=== PATIENT | male | born 1955 | race Caucasian/White ===

== ENCOUNTER 2016-06-30 06:35 | Inpatient (IN) | payer BC ==
[2016-06-30] MEDS ORDERED: NS 0.9% 1000 ML* 1,000 ML IV ONE (07:29)
[2016-06-30] MEDS ORDERED: Aspirin Low Dose CHEW TAB* 81 MG PO ONE (07:29)
[2016-06-30 08:00] LABS: Hematocrit 53 % (42-52); Hemoglobin 17.7 g/dl (14.0-18.0); Mean Corpuscular HGB Conc 33 g/dl (31-36); Mean Corpuscular Hemoglobin 31 pg (27-31); Mean Corpuscular Volume 92 fL (80-94); Mean Platelet Volume 9 um3 (7.4-10.4); Red Blood Count 5.76 10^6/ul (4.0-5.4); Red Cell Distribution Width 14 % (10.5-15); White Blood Count 7.1 10^3/ul (3.5-10.8)
[2016-06-30 08:12] LABS: ALT 28 U/L (7-52); Albumin 3.7 g/dL (3.2-5.2); Alkaline Phosphatase 61 U/L (34-104); BUN/Creatinine Ratio 21.2 (8-20); Blood Urea Nitrogen 18 mg/dL (6-24); CO2 Carbon Dioxide 26 mmol/L (22-32); Calcium 9.2 mg/dL (8.6-10.3); Chloride 101 mmol/L (101-111); Creatine Kinase 84 U/L (10-223); EGFR African American 119.1 (>60); EGFR Non-African American 92.6 (>60); Glucose 208 mg/dL (70-100); Sodium 131 mmol/L (133-145); Total Protein 6.7 g/dL (6.4-8.9)
--- NOTE | 2016-06-30 08:30 | RAD ---
INDICATION: Chest pain. Pneumonia COMPARISON: February 03, 2015 TECHNIQUE: An AP portable view obtained at 0755 hours is submitted. FINDINGS: Bones/Soft Tissues: There are no acute bony findings. Cardiomediastinal: The cardiomediastinal silhouette is normal. Lungs: There are no infiltrates. Pleura: There are no pleural effusions. Other: There is chronic elevation of the right hemidiaphragm IMPRESSION: NO ACTIVE DISEASE. CHRONIC ELEVATION RIGHT HEMIDIAPHRAGM
--- NOTE | 2016-06-30 09:09 | ADMNOTE ---
Subjective Date of Service: 06/30/16 Interval History: ADMISSION HISTORY AND PHYSICAL EXAM: Allergies Allergy/AdvReac Type Severity Reaction Status Date / Time No Known Allergies Allergy Verified 02/01/15 09:35 Home Medications Medication Instructions Recorded Confirmed Type Atorvastatin* [Lipitor*] 80 mg PO DAILY 02/02/15 02/02/15 History Lisinopril TAB* [Prinivil TAB*] 10 mg PO DAILY 02/02/15 02/02/15 History Metoprolol Succinate XL TAB* 100 mg PO DAILY 02/02/15 02/02/15 History [Toprol XL TAB*] Nitroglycerin [Nitrostat] 0.3 mg SL 02/02/15 02/02/15 History Ticagrelor* [Brilinta*] 90 mg PO BID 02/02/15 02/02/15 History glipiZIDE TAB* [Glucotrol TAB*] 5 mg PO DAILY 02/02/15 02/02/15 History metFORMIN* [Glucophage*] 500 mg PO BID 02/02/15 02/02/15 History HPI: Patient was in his usual sstate of health. When he got up this AM and walked his dogs, he got pain R chest to R back. It was very similar to the pain he had with his ND 2014. He took two (fresh) NTG SL without relief. The pain is still present but much less. No SOB. He took his ASA, metformin, and metoprolol this AM. Family History: Findings - DM, CVA, HTN, heart disease Social History: Findings - . Works for [employer]. Quit smoking 1 year ago. No alcohol abuse. Son Musa is his SDM. Past Medical History: Findings - Cardiac stents 08/31, 01/31. Hernia repair, eye surgery. DM. Review of Systems - Measurements Intake and Output: Intake and Output Last 24 Hours 06/28/16 06/29/16 06/30/16 07/01/16 06:59 06:59 06:59 06:59 Weight 206 lb - Review of Systems Constitutional Symptoms: Positive: Weight Gain Dermatology: Positive: Normal HEENT: Positive: Normal Eyes: Positive: Normal Thyroid: Positive: Normal Pulmonary: Positive: Normal Cardiology: Positive: Chest Pain Gastroenterology: Positive: Other - c/o burping Genital - Urinary: Positive: Normal Musculoskeletal: Negative: Joint Pain, Joint Stiffness, Arthritis, Osteoporosis, Low Back Pain , Sciatica, Joint Deformities, Kyphoscoliosis, Other Endocrinology: Positive: Diabetes Mellitus Hematologic/Lymphatic: Negative: Anemia, Easy Brusing, Hx Leukemia, Hx Lymphoma, Use of Anticoagulant, Use of Antiplatelet Drugs, Other Neurology: Positive: Normal Psychiatry: Positive: Normal Allergic/Immunologic: Negative: Hx Anaphylaxis, Hx Angioedema, Hx Environmental, Hx Seasonal, Athsma, Hx HIV, Immunocompromise, Swollen Glands LymphNodes, Other Objective Vital Signs 06/30/16 06/30/16 06/30/16 06:43 06:55 06:57 Temperature 97.9 F Pulse Rate 86 83 Respiratory 18 12 Rate Blood Pressure 132/89 133/82 (mmHg) O2 Sat by Pulse 95 96 Oximetry 06/30/16 06/30/16 06/30/16 07:00 07:30 08:00 Temperature Pulse Rate 85 86 83 Respiratory 12 14 14 Rate Blood Pressure 135/78 120/79 113/79 (mmHg) O2 Sat by Pulse 95 94 94 Oximetry 06/30/16 08:30 Temperature Pulse Rate 81 Respiratory Rate Blood Pressure 108/72 (mmHg) O2 Sat by Pulse 94 Oximetry Oxygen Devices in Use Now: Nasal Cannula Appearance: Alert, head partly up in bed. In good spirits. Looks comfortable. Eyes: No Scleral Icterus Ears/Nose/Mouth/Throat: Clear Oropharnyx, Mucous Membranes Moist Neck: NL Appearance and Movements; NL JVP, No Thyroid Enlargement, Masses Respiratory: Symmetrical Chest Expansion and Respiratory Effort, Clear to Auscultation, Clear to Percussion Cardiovascular: NL Sounds; No Murmurs; No JVD, RRR, No Edema, - Abdominal: NL Sounds; No Tenderness; No Distention, No Hepatosplenomegaly, - Extremities: No Edema, No Clubbing, Cyanosis, - Skin: No Rash or Ulcers, No Nodules or Sclerosis, - Neurological: Alert and Oriented x 3, NL Sensation Result Diagrams: 06/30/16 13:00 06/30/16 09:00 Assess/Plan/Problems-Billing Assessment: - Patient Problems (1) Chest pain Current Visit: No Status: Acute Priority: High Onset Date: 08/25/14 Code (s): R07.9 - CHEST PAIN, UNSPECIFIED SNOMED Code(s): 82144385 Comment: Repeat ECG unchanged, second tropinin 0.14. I called Dr. Urbina who brought the paient to the laborer cheesemaking. Heparin drip started. Clopidogrel started post-cath. Stress test 07/01 to try to identify the culprit lesion. (2) Diabetes mellitus Current Visit: No Status: Chronic Code(s): E11.9 - TYPE 2 DIABETES MELLITUS WITHOUT COMPLICATIONS SNOMED Code(s): 41338244 Comment: Addon HgbA1c ordered. Hold metformin while in hospital. (3) LIBBY (obstructive sleep apnea) Current Visit: No Status: Chronic Code(s): G47.33 - OBSTRUCTIVE SLEEP APNEA (ADULT) (PEDIATRIC) SNOMED Code(s): 20461985 Comment: Pt tried CPAP at home, could not tolerate it.
[2016-06-30 09:21] LABS: Magnesium 1.6 mg/dL (1.9-2.7)
[2016-06-30 09:51] LABS: Troponin I 0.14 ng/mL (<0.04)
[2016-06-30] MEDS ORDERED: Heparin VIAL(*) 5000 UNITS/ML VIAL (FIVE THOUSAND) IV SCH (10:00)
[2016-06-30] MEDS ORDERED: Dextrose 50% Syringe 50 ML* 25 GM/50 ML SYRINGE IV PUSH PRN (10:02)
[2016-06-30] MEDS ORDERED: Nitroglycerin TAB 0.4 MG* 0.4 MG TAB SL PRN ×2 (10:05→12:48)
[2016-06-30] MEDS ORDERED: Morphine INJ* 2 MG/ML 1 ML CARPUJECT IV PRN (10:06)
--- NOTE | 2016-06-30 10:07 | ED ---
Roque Lemus Benjamin, scribed for Velasquez Obrien MD on 06/30/16 at 0753 . HPI Chest Pain - HPI Summary HPI Summary: 60yo male c/o dull CP since 0530 today shortly after a brief walk outside to get coffee. Pt cannot exactly recall the location of his CP, but admits pain radiating to right shoulder blade. Pt rated the pain initially 8-9/10 and discomfort is still present but in scale of 6/10 pain. Pt felt tired a few days prior, and broke out in sweat at the onset of CP. Pt took 2 nitrostat WEB WEAVER,. Pt has hx of prior HI, but states todays pain is not as worse as his previous HI. Hx also includes cardiac stents and DM. Pt denies cough, SOB, CP, leg edema, N/V , or abdominal pain. Dr. Woodward is his handle rounder operator. - History of Current Complaint Chief Complaint: EDChestPainROMI Hx Obtained From: Patient, Family/Heat Reader Onset/Duration: Started Hours Ago - at 0530, Still Present Timing: Constant Initial Severity: Severe Current Severity: Moderate Pain Intensity: 6 Pain Scale Used: 0-10 Numeric Chest Pain Location: Diffuse Chest Pain Radiates: Yes Chest Pain Radiates To:: Shoulder - right shoulderblade Character: Dull/Aching - dull Aggravating Factor(s): Nothing Alleviating Factor(s): Nothing Associated Signs and Symptoms: Positive: Fever, Diaphoresis. Negative: Shortness of Breath, Nausea, Cough, Abdominal Pain, Vomiting, Edema - Additional Pertinent History Primary Care Physician: [id number] - Allergy/Home Medications Allergies/Adverse Reactions: Allergies Allergy/AdvReac Type Severity Reaction Status Date / Time No Known Allergies Allergy Verified 02/01/15 09:35 PMH/Surg Hx/FS Hx/Imm Hx Endocrine/Hematology History: Reports: Hx Diabetes Cardiovascular History: Reports: Hx Hypertension Denies: Hx Congestive Heart Failure History: Denies: Hx Renal Disease Sensory History: Reports: Hx Contacts or Glasses, Hx Legally Blind - left eye blind Opthamlomology History: Reports: Hx Contacts or Glasses, Hx Legally Blind - left eye blind - Surgical History Surgery Procedure, Year, and Place: Left inguinal hernia repair. 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 Negative: Palpitations Respiratory: Negative Negative: Shortness Of Breath, Cough Gastrointestinal: Negative Negative: Abdominal Pain, Vomiting, Nausea Genitourinary: Negative Musculoskeletal: Negative Skin: Negative Neurological: Negative Psychological: Normal All Other Systems Reviewed And Are Negative: Yes Physical Exam - Summary Physical Exam Summary: The patient is well-nourished in no acute distress and in no acute pain. The skin is warm and dry and skin color reflects adequate perfusion. HEENT: The head is normocephalic and atraumatic. The pupils are equal and reactive. The conjunctivae are clear and without drainage. Nares are patent and without drainage. Mouth reveals moist mucous membranes and the throat is without erythema and exudate. The external ears are intact. The ear canals are patent and without drainage. The tympanic membranes are intact. Neck is supple with full range of motion and non-tender. There are no carotid bruits. There is no neck vein distension. Respiratory: Chest is non-tender. Lungs are clear to auscultation and breath sounds are symmetrical and equal. Cardiovascular: Hear is regular rate and rhythm. There is no murmur or rub auscultated. There is no peripheral edema and pulses are symmetrical and equal. Abdomen: The abdomen is soft and non-tender. There are normal bowel sounds heard in all four quadrants and there is no organomegaly palpated. Musculoskeletal: There is no back pain noted. Extremities are non-tender with full range of motion. There is good capillary refill. There is no peripheral edema or calf tenderness elicited. No reproducible pain in chest or back. Good femoral pulses. Neurological: Patient is alert and oriented to person, place and time. The patient has symmetrical motor strength in all four extremities. Cranial nerves are grossly intact. Deep tendon reflexes are symmetrical and equal in all four extremities. Psychiatric: The patient has an appropriate affect and does not exhibit any anxiety or depression. Triage Information Reviewed: Yes Vital Signs On Initial Exam: Initial Vitals Temp Pulse Resp BP Pulse Ox 97.9 F 86 18 132/89 95 06/30/16 06:43 06/30/16 06:43 06/30/16 06:43 06/30/16 06:43 06/30/16 06:43 Vital Signs Reviewed: Yes Diagnostics - Vital Signs Vital Signs Temp Pulse Resp BP Pulse Ox 06/30/16 06:57 83 12 96 06/30/16 06:55 133/82 06/30/16 06:43 97.9 F 86 18 132/89 95 - Laboratory Lab Results: Lab Results 06/30/16 06/30/16 06/30/16 Range/Units 06:51 06:51 06:51 WBC 7.1 (3.5-10.8) 10^3/ul RBC 5.76 H (4.0-5.4) 10^6/ul Hgb 17.7 (14.0-18.0) g/dl Hct 53 H (42-52) % MCV 92 (80-94) fL MCH 31 (27-31) pg MCHC 33 (31-36) g/dl RDW 14 (10.5-15) % Plt Count 188 (150-450) 10^3/ul MPV 9 (7.4-10.4) um3 Neut % (Auto) 65.0 (38-83) % Lymph % (Auto) 20.7 L (25-47) % Allen % (Auto) 8.6 (1-9) % Eos % (Auto) 4.2 (0-6) % Baso % (Auto) 1.5 (0-2) % Absolute Neuts (auto) 4.6 (1.5-7.7) 10^3/ul Absolute Lymphs (auto) 1.5 (1.0-4.8) 10^3/ul Absolute Monos (auto) 0.6 (0-0.8) 10^3/ul Absolute Eos (auto) 0.3 (0-0.6) 10^3/ul Absolute Basos (auto) 0.1 (0-0.2) 10^3/ul Absolute Nucleated RBC 0.01 10^3/ul Nucleated RBC % 0.1 INR (Anticoag Therapy) 0.94 (0.89-1.11) Sodium 131 L (133-145) mmol/L Potassium TNP Chloride 101 (101-111) mmol/L Carbon Dioxide 26 (22-32) mmol/L Anion Gap TNP BUN 18 (6-24) mg/dL Creatinine 0.85 (0.67-1.17) mg/dL Est GFR ( Amer) 119.1 (>60) Est GFR (Non-Af Amer) 92.6 (>60) BUN/Creatinine Ratio 21.2 H (8-20) Glucose 208 H (70-100) mg/dL Lactic Acid (0.5-2.0) mmol/L Calcium 9.2 (8.6-10.3) mg/dL Magnesium TNP Total Bilirubin 0.80 (0.2-1.0) mg/dL AST TNP ALT 28 (7-52) U/L Alkaline Phosphatase 61 (34-104) U/L Total Creatine Kinase 84 (10-223) U/L Troponin I 0.00 (<0.04) ng/mL B-Natriuretic Peptide ( - 100) pg/mL Total Protein 6.7 (6.4-8.9) g/dL Albumin 3.7 (3.2-5.2) g/dL Globulin 3.0 (2-4) g/dL Albumin/Globulin Ratio 1.2 (1-3) 06/30/16 06/30/16 06/30/16 Range/Units 06:51 06:51 09:00 WBC (3.5-10.8) 10^3/ul RBC (4.0-5.4) 10^6/ul Hgb (14.0-18.0) g/dl Hct (42-52) % MCV (80-94) fL MCH (27-31) pg MCHC (31-36) g/dl RDW (10.5-15) % Plt Count (150-450) 10^3/ul MPV (7.4-10.4) um3 Neut % (Auto) (38-83) % Lymph % (Auto) (25-47) % Allen % (Auto) (1-9) % Eos % (Auto) (0-6) % Baso % (Auto) (0-2) % Absolute Neuts (auto) (1.5-7.7) 10^3/ul Absolute Lymphs (auto) (1.0-4.8) 10^3/ul Absolute Monos (auto) (0-0.8) 10^3/ul Absolute Eos (auto) (0-0.6) 10^3/ul Absolute Basos (auto) (0-0.2) 10^3/ul Absolute Nucleated RBC 10^3/ul Nucleated RBC % INR (Anticoag Therapy) (0.89-1.11) Sodium (133-145) mmol/L Potassium 4.4 Chloride (101-111) mmol/L Carbon Dioxide (22-32) mmol/L Anion Gap BUN (6-24) mg/dL Creatinine (0.67-1.17) mg/dL Est GFR ( Amer) (>60) Est GFR (Non-Af Amer) (>60) BUN/Creatinine Ratio (8-20) Glucose 165 H (70-100) mg/dL Lactic Acid 1.2 (0.5-2.0) mmol/L Calcium (8.6-10.3) mg/dL Magnesium 1.6 L Total Bilirubin (0.2-1.0) mg/dL AST 18 ALT (7-52) U/L Alkaline Phosphatase (34-104) U/L Total Creatine Kinase (10-223) U/L Troponin I 0.14 H* (<0.04) ng/mL B-Natriuretic Peptide 7 ( - 100) pg/mL Total Protein (6.4-8.9) g/dL Albumin (3.2-5.2) g/dL Globulin (2-4) g/dL Albumin/Globulin Ratio (1-3) Result Diagrams: 06/30/16 06:51 06/30/16 09:00 Lab Statement: Any lab studies that have been ordered have been reviewed, and results considered in the medical decision making process. - Radiology CXR Xray Interpretation: No Acute Changes - IMPRESSION: NO ACTIVE DISEASE. CHRONIC ELEVATION RIGHT HEMIDIAPHRAGM Radiology Interpretation Completed By: Radiologist - EKG 0645 Cardiac Rate: NL EKG Rhythm: Sinus Rhythm EKG Interpretation: RBBB. Old Anterior Infarct. no STEMI Re-Evaluation - Re-Evaluation First Eval Re-Evaluation Time: 10:04 Change: Improved - Pt is pain-free. Pt was told about his troponin level. Pt is awaiting for admission. Chest Pain Course/Dx - Course Assessment/Plan: risk stratification using heart score showed to be a moderate risk at 6 points. - Chest Pain Differential Diagnosis/HQI/PQRI: Acute HI, ACS, Angina, CHF, GI Disease - Diagnoses Provider Diagnoses: NSTEMI (non-ST elevated myocardial infarction) - Provider Notifications Discussed Care Of Patient With: Dr. Silverman (Hospitalist) @[phone]. Discussed about today's CP and the pt's prior hx of CAD. Dr. Silverman will come to evaluate the pt. Dr. Silverman (Hospitalist) @1000. Admiting pt to ICU. Discharge - Discharge Plan Condition: Guarded Disposition: ADMITTED TO [facility] Referrals: Christina RAMACHANDRAN,Eren Chatman [Primary Care Provider] - The documentation as recorded by the Roque alfonso Benjamin accurately reflects the service I personally performed and the decisions made by , Velasquez Obrien MD.
[2016-06-30] MEDS ORDERED: NS 0.9% 1000 ML* 1,000 ML IV SCH ×2 (10:15→13:00)
[2016-06-30] MEDS ORDERED: Heparin DRIP 25,000 UNITS(*) 25,000 UNITS/500 ML BAG ONE (10:47)
[2016-06-30] MEDS ORDERED: Heparin VIAL(*) 5000 UNITS/ML VIAL (FIVE THOUSAND) ONE (10:58)
[2016-06-30] MEDS ORDERED: Midazolam* 1 MG/ML 5 ML VIAL (5 MG) ONE (11:17)
[2016-06-30] MEDS ORDERED: fentaNYL* 50 MCG/ML 2 ML VIAL (100 MCG VIAL) ONE (11:17)
[2016-06-30] MEDS ORDERED: nitroGLYCERIN DRIP* 0 ML ONE (11:18)
[2016-06-30] MEDS ORDERED: Heparin 2 UNITS/ML IVPREMIX* 3,000 ML IV ONE (11:18)
[2016-06-30] MEDS ORDERED: Iohexol 350 (CONTRAST) 200 ML MDV IV ONE (11:18)
[2016-06-30] MEDS ORDERED: VERAPAMIL 2.5 MG/ML 4 ML VIAL ONE (11:18)
[2016-06-30] MEDS ORDERED: Heparin(*) 1000 UNIT/ML 10 ML VIAL CATH LAB IV ONE (11:18)
[2016-06-30] MEDS ORDERED: Lidocaine 1% INJ* 10 MG/ML 30 ML SDV ONE (11:18)
[2016-06-30] MEDS: Heparin DRIP 25,000 UNITS(*) 25,000 UNITS/500 ML BAG IVPB SCH (11:22)
--- NOTE | 2016-06-30 12:22 | CONS ---
CARDIOLOGY CONSULTATION REPORT: DATE OF CONSULT: 06/30/16 HISTORY OF PRESENT ILLNESS: I was asked by Dr. Silverman from the hospitalist service to see this 60-year-old male patient who presented to the emergency room with symptoms of chest pain this morning. In reviewing his history, the patient was having known history of extensive coronary artery disease. In 2014 in August, he underwent angioplasty and stenting of the left anterior descending artery. He also had inferior wall myocardial infarction in January of 2015 and he underwent angioplasty and stenting of the right coronary artery and multiple stents. He was found to have significant multivessel disease involving mid to distal left anterior descending artery, the mid portion of the circ, in addition to total occluded right coronary artery as a primary lesion for his ST- elevation myocardial infarction. He underwent subsequent revascularization of the right coronary artery. He has done well. At that time, he used to smoke, he quit. He has been maintained on baby aspirin once a day, Lipitor 80 mg daily , glipizide for diabetes 5 mg twice a day, lisinopril 10 mg daily, metformin 1000 mg twice a day, metoprolol 25 mg half once a day. He does have history of dyslipidemia; diabetes mellitus, type 2. He has done well without any nausea, no fever, no chills, no skin rash, no tremors, no hematochezia, no palpitations , no orthopnea. He woke up this morning with symptoms of chest pain and heaviness. No jaw pain. No arm pain. No nausea, no vomiting. No syncope. He felt feverish a little bit. He took sublingual nitroglycerin twice with some help and then his son brought him to the emergency room. In the emergency room , his first troponin was 0 at 6:51 in the morning but it did go up to 0.14 at 9 o'clock this morning. His repeat 2 EKGs actually showed him to have normal sinus rhythm. His EKG that was done at 6:45 in the morning showed him to have sinus rhythm, heart rate 84 beats per minute. There is Q wave in lead II and aVF consistent with his old inferior wall OK. There is nonspecific QRS widening , there is incomplete right bundle branch block. A repeat EKG done at 9:18 this morning showed him to have the same with normal sinus rhythm and Q waves inferiorly, there is some borderline ST elevation in lead II but probably more prominent than this morning EKG and there is incomplete right bundle branch block. Because of his chest pain, known history of severe CAD, and abnormal troponin, Cardiology consult was further requested for further evaluation by left cardiac catheterization to evaluate his coronary anatomy and the status of his stents. He became chest pain free after received an additional aspirin and nitroglycerin in the emergency room. He gives no orthopnea, no PND, no syncope. His review of all other systems essentially is negative. PAST MEDICAL HISTORY: Includes known history of severe coronary artery disease ; history of myocardial infarction on 02/01/[address] elevation; dyslipidemia; diabetes mellitus, type 2. His cardiac testing and echocardiogram done in August 2014 showed normal left ventricular systolic function, EF 50%. MEDICATIONS: As an outpatient as outlined above. ALLERGIES: No known drug allergies. FAMILY HISTORY: No family history of premature coronary artery disease. SOCIAL HISTORY: He is single, lives with son. He used to smoke, he quit since his heart attack in 2014. He has no history of alcohol, no history of illicit drug use. REVIEW OF SYSTEMS: Review of all other systems essentially is negative. PHYSICAL EXAM: Currently, he is chest pain free. His vitals, blood pressure 119/81, pulse is 90, in sinus rhythm. He is afebrile. Temperature 97.9, respiratory rate 18. Head and Neck Exam: Normocephalic, atraumatic head. Ears , Nose, and Throat: Essentially benign. Neck: Supple. JVP is not elevated. No carotid bruits. No masses in the neck are appreciated. Chest: Clear to auscultation. No rales, no wheeze, no added sounds appreciated. Heart: Normal. Regular S1, S2. No added sounds, no gallops, no rubs. Abdomen: Benign. Soft. Positive bowel sounds. Extremities: No edema, no cyanosis, no clubbing. Skin exam is normal. Psych: Normal affect and mood. 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 DIAGNOSTIC STUDIES/LAB DATA: His EKG is as outlined above. Labs: White blood cell is 7.1, hemoglobin 17.7, hematocrit 53, platelets 188. His chemistry, sodium 131, potassium 4.4, chloride 101, carbon dioxide 26, BUN 18, creatinine 0.85, hemoglobin A1c 8.1. Troponin 0.14; the first one was 0. His INR 0.94, PTT 31.2. His chest x-ray was reported today to have no active disease. IMPRESSION: The patient is a 60-year-old male patient with: 1. Presentation with symptoms of chest pain, abnormal EKG, and abnormal troponin concerning for acute coronary syndrome. 2. Known history of severe coronary artery disease with history last one of inferior ST-elevation myocardial infarction in January 2015. 3. Multiple stents to the left anterior descending artery as well as to the right coronary artery as outlined above. 4. Systemic arterial hypertension. 5. Diabetes mellitus, type 2, insulin dependent. 6. Hyperlipidemia. 7. History of tobacco consumption, he quit. 8. Abnormal EKG as described. PLAN: I am concerned about his symptoms and abnormal troponin, especially his first troponin was 0, and especially his known history of severe coronary artery disease, I think a left cardiac catheterization to evaluate his coronary anatomy and the status of his multiple stents in his coronary arteries and his acute coronary syndrome is appropriate. I agree with aspirin, beta gabbie, statin, and heparin IV as you already ordered. He would be taken to the cardiac catheterization lab shortly. I answered all his concerns and questions up to his satisfaction. Any further recommendations will be pending his clinical outcome and the findings of the cardiac catheterization. Thank you very much for asking us to participate in the care of this patient. CC: Dr. Melvin Vasquez; Dr. Woodward; Dr. Urbina; Dr. Silverman, Hospitalist Service* [id number]/[facility] #: [id number] [place]
[2016-06-30] MEDS ORDERED: Clopidogrel TAB* 75 MG PO ONE (12:45)
[2016-06-30] MEDS ORDERED: Acetaminophen TAB* 325 MG PO PRN (12:48)
[2016-06-30] MEDS ORDERED: oxyCODONE/Acetamin 5/325 MG* TAB PO PRN (12:48)
[2016-06-30] MEDS ORDERED: Atropine SYRINGE* 0.1 MG/ML 10 ML SYRINGE (1 MG) IV PUSH PRN (13:00)
[2016-06-30 13:11] LABS: Hematocrit 46 % (42-52); Hemoglobin 15.6 g/dl (14.0-18.0); Mean Corpuscular HGB Conc 34 g/dl (31-36); Mean Corpuscular Hemoglobin 31 pg (27-31); Mean Corpuscular Volume 91 fL (80-94); Mean Platelet Volume 8 um3 (7.4-10.4); Red Blood Count 5.09 10^6/ul (4.0-5.4); Red Cell Distribution Width 13 % (10.5-15)
[2016-06-30] MEDS: Insulin LISPRO* 1 UNITS UNIT SUBCUT SCH ×3 (14:30→21:03)
--- NOTE | 2016-06-30 23:58 | CATH ---
CARDIAC CATHETERIZATION REPORT: DATE OF CATHETERIZATION: 06/30/16 - ROOM #ICU-06 PROCEDURES: Left cardiac catheterization, selective coronary angiography, left ventriculography. HISTORY: I was asked by Dr. Silverman to do a left cardiac catheterization on this 60- year-old male patient with extensive significant history of coronary artery disease, multiple stents, history of STEMI of the right coronary artery, and multiple stents in the RCA and in the LAD in the past who presented with symptoms of chest pain at rest and abnormal troponin. He does have history of diabetes, hypertension, hyperlipidemia. Given his symptoms of chest pain, abnormal troponin, and extensive coronary artery disease history, and multiple stents in his coronary arteries, he was further referred for a cardiac catheterization to evaluate his coronary anatomy. DESCRIPTION OF PROCEDURE: After informed written consent had been obtained and with continuous blood pressure, pulse oximetry, and heart rate monitoring, the patient was brought into the cardiac catheterization lab where the right femoral region was prepped and draped in the usual sterile fashion. Xylocaine 1 % was used for local anesthesia. Next, the right femoral artery was entered and a 6-Wolof sheath placed into the right femoral artery. Through the right femoral artery sheath, a 6-Wolof JL4 catheter was advanced over the arch of the aorta, left coronary engaged, and left coronary arteriography performed. This catheter was removed and a 6-Wolof JR4 catheter was advanced over the arch of the aorta, right coronary engaged, and right coronary arteriography performed. This catheter was removed and a 6-Wolof pigtail catheter was advanced over the arch of the aorta into the left ventricle where left ventriculography was performed. This catheter was removed. Hemostasis was obtained with the Mynx device successfully. There were no complications and the patient tolerated the procedure very well. HEMODYNAMICS: The aortic pressure is 106/63 mmHg, left ventricle 103 with an LVEDP of 8 mmHg. ANGIOGRAPHIC RESULTS: Left main coronary artery: The left main coronary artery was a good caliber vessel.7 It gave rise to left anterior descending artery, circumflex coronary artery, and ramus intermedius artery. The left main was free of any significant disease. Left anterior descending artery: The left anterior descending artery in the proximal segment of the LAD just at the stent probable insertion, there appeared to be stenosis moderate, at least probably 60% to 70% disease. The stent itself after that was widely patent. There is first diagonal and second diagonal branch that has probably 60% to 70% stenosis. The mid LAD has 70% to 75% stenosis. There was normal LIBRADO-3 flow. The distal LAD has about 55% to 60 % disease. Ramus intermedius artery: The ramus intermedius artery has a proximal segment of about 60% to 70%, at least 70% stenosis. Circumflex artery: The circumflex coronary artery was nondominant and the circ has about 75% to 80% disease. It was noted that there was left to right collaterals. Right coronary artery: The right coronary artery was a very large caliber vessel and it was dominant. Multiple readily visible stents seen which there appears to be widely patent with only minimal luminal irregularities. Left ventriculography: Left ventriculography was performed in the standard MACKEY projection and it showed an overall left ventricular systolic function with an EF of 45% with inferior posterior and inferior apical wall hypokinesis. CONCLUSION: 1. Multivessel coronary artery disease, appears to be significant involving the proximal LAD, mid LAD, and distal LAD and also proximal diagonal 1 and diagonal 2 and also the proximal ramus intermedius and circumflex coronary artery ranging from 60% to 80% stenosis as described above. 2. Widely patent stents in a very large caliber vessel, dominant right coronary artery. 3. Mildly reduced left ventricular systolic function with an EF 45% with an inferior posterior and inferior apical wall hypokinesis. 4. Hemostasis obtained with the Mynx device successfully. PLAN: I have discussed this with Dr. Terrell from the interventional cardiology services who kindly reviewed the cath from today and the previous cardiac catheterizations of the patient. Given the multivessel coronary artery disease , which appears to be significant as described above, it was difficult to identify a culprit lesion causing the current patient symptoms of chest pain and abnormal troponin. Based on further discussion with Dr. Terrell and our evaluation, we will schedule the patient for a Lexiscan Myoview nuclear stress test to identify any significant reversible area of ischemia if any and any further decisions and recommendations will be based on that. Meanwhile, the patient is to be admitted as per Dr. Silverman, hospitalist service. He will be maintained on aspirin, beta-gabbie treatment, statin, and heparin. We will resume antiplatelet treatment with Plavix or Brilinta and we will follow him very closely. CC: Dr. Eren Vasquez; Dr. Silverman; Dr. Woodward; Dr. Urbina * [id number]/[facility] #: [id number] GEORGE
[2016-07-01 04:37] LABS: Hematocrit 48 % (42-52); Hemoglobin 16.2 g/dl (14.0-18.0); Mean Corpuscular HGB Conc 34 g/dl (31-36); Mean Corpuscular Hemoglobin 31 pg (27-31); Mean Corpuscular Volume 91 fL (80-94); Mean Platelet Volume 8 um3 (7.4-10.4); Red Blood Count 5.23 10^6/ul (4.0-5.4); Red Cell Distribution Width 13 % (10.5-15); White Blood Count 7.6 10^3/ul (3.5-10.8)
[2016-07-01 04:50] LABS: BUN/Creatinine Ratio 16.4 (8-20); Calcium 8.3 mg/dL (8.6-10.3); EGFR African American 156.7 (>60); EGFR Non-African American 121.8 (>60); Globulin 2.6 g/dL (2-4); HDL Cholesterol 24.2 mg/dL; Potassium 4.1 mmol/L (3.5-5.0); Total Bilirubin 0.7 mg/dL (0.2-1.0); Total Protein 5.6 g/dL (6.4-8.9)
[2016-07-01 05:02] LABS: Troponin I 0.77 ng/mL (<0.04)
[2016-07-01] MEDS: Heparin DRIP 25,000 UNITS(*) 25,000 UNITS/500 ML BAG IVPB SCH (05:15)
[2016-07-01] MEDS: Insulin LISPRO* 1 UNITS UNIT SUBCUT SCH ×4 (07:47→21:26)
[2016-07-01] MEDS: Aspirin Low Dose CHEW TAB* 81 MG PO SCH (08:40)
[2016-07-01] MEDS ORDERED: Metoprolol Succinate XL TAB* 25 MG PO SCH ×2 (09:00→15:19)
[2016-07-01] MEDS ORDERED: Clopidogrel TAB* 75 MG PO SCH (09:00)
--- NOTE | 2016-07-01 11:00 | RAD ---
HISTORY: Chest pain, coronary artery disease, previous MS, diabetes, hypertension, hyperlipidemia COMPARISONS: Chest x-ray dated June 30, 2016 TECHNIQUE: A 1 day stress/rest myocardial perfusion study was performed, with pharmacologic stress. The stress portion was monitored by Dr. Terrell. Gated SPECT imaging was performed, with CT-based attenuation correction DOSE: Stress: Technetium 99m tetrofosmin, 27 millicuries, injected at 9:36 AM on November 29, 2016 Rest: Technetium 99m tetrofosmin, 10.93 millicuries, injected at 7:25 AM on July 01, 2016 Pharmacologic agent: Lexiscan FINDINGS: CARDIAC MONITORING: There are no EKG changes of ischemia with pharmacologic stress EF: 52 % TID: 1.09 MOTION: Normal motion, with normal wall thickening. PERFUSION: There is a large fixed defect of the inferior wall that partially resolves in attenuation correction imaging, suggestive of artifact. There are no reversible perfusion defects. OTHER: There is elevation of the right hemidiaphragm IMPRESSION: PROBABLY ARTIFACTUAL FIXED DEFECT OF THE INFERIOR WALL. NO REVERSIBLE PERFUSION DEFECT. NORMAL EJECTION FRACTION. ASSESSMENT: LOW RISK. Based on imaging criteria from ACC/AHA 2002. Guideline Update for the Management of Patient's with Chronic Stable Angina, table 23. Noninvasive Risk Stratification.
[2016-07-01] MEDS ORDERED: Regadenoson* 0.4 MG/5 ML SYRINGE ONE (11:56)
--- NOTE | 2016-07-01 14:27 | PN ---
Subjective Date of Service: 07/01/16 Interval History: HOSPITALIST PROGRESS NOTE Patient seen and examined at bedside. He feels well today, no further episodes of chest pain. Family History: Unchanged from Admission Social History: Unchanged from Admission Past Medical History: Unchanged from Admission Objective Active Medications: Acetaminophen (Tylenol Tab*) 650 mg PO Q4H PRN PRN Reason: PAIN - MILD Aspirin (Aspirin Low Dose Tab*) 81 mg PO DAILY [facility] Last Admin: 07/01/16 08:40 Dose: 81 mg Clopidogrel Bisulfate (Plavix Tab*) 75 mg PO DAILY [facility] Last Admin: 07/01/16 08:40 Dose: 75 mg Dextrose (D50w Syringe 50 Ml*) 12.5 gm IV PUSH .FOR FS < 60 - SS PRN PRN Reason: FS < 60 Insulin Human Lispro (Humalog*) 0 units SUBCUT ACHS [facility] PRN Reason: Protocol Last Admin: 07/01/16 12:07 Dose: 2 units Metoprolol Succinate (Toprol Xl Tab*) 12.5 mg PO DAILY [facility] Last Admin: 07/01/16 08:42 Dose: 12.5 mg Oxycodone/Acetaminophen (Percocet 5/325 Tab*) 1 tab PO Q6H PRN PRN Reason: PAIN - SEVERE Vital Signs 07/01/16 07/01/16 07/01/16 11:00 11:46 12:00 Temperature 98.4 F Pulse Rate 85 85 Respiratory 17 21 17 Rate Blood Pressure 131/87 135/79 (mmHg) O2 Sat by Pulse 96 97 Oximetry 07/01/16 07/01/16 13:00 14:00 Temperature Pulse Rate 87 82 Respiratory 18 15 Rate Blood Pressure 139/85 120/86 (mmHg) O2 Sat by Pulse 95 94 Oximetry Oxygen Devices in Use Now: None Appearance: Pleasant gentleman lying in bed in NAD. Eyes: No Scleral Icterus Ears/Nose/Mouth/Throat: Mucous Membranes Moist Neck: Trachea Midline Respiratory: Symmetrical Chest Expansion and Respiratory Effort, Clear to Auscultation Cardiovascular: RRR - Normal S1 and S2 Abdominal: NL Sounds; No Tenderness; No Distention Neurological: Alert and Oriented x 3, NL Muscle Strength and Tone Lines/Tubes/Other Access: Clean, Dry and Intact Peripheral IV Nutrition: Taking PO's Result Diagrams: 07/01/16 04:20 07/01/16 04:20 Assess/Plan/Problems-Billing Assessment: Mr. Francis is a 60yo M with PMH of CAD s/p stent, type 2 DM, HTN, prior h/o tobacco abuse, who presented to ED with c/o chest pain, found to have NSTEMI. - Patient Problems (1) NSTEMI (non-ST elevated myocardial infarction) Comment: - Cardiac cath report reviewed. - Stress test did not show new areas of reversible ischemia. He probably had a small vessel event and will likely require fdc double antiplatelet therapy. - Continue Aspirin and Plavix. - Continue Metoprolol and add Atorvastatin. - Transfer to Telemetry. (2) Diabetes mellitus Comment: - A1c is 8.1. - Metformin on hold due to recent cath. - Continue Lispro SS. (3) Hypertension Comment: - Controlled. - Continue Metoprolol. (4) DVT prophylaxis Comment: - SQ heparin. (5) Full code status Status and Disposition: Inpatient. Transfer to Telemetry floor.
[2016-07-01] MEDS ORDERED: Atorvastatin* 80 MG TAB PO SCH (17:00)
[2016-07-01] MEDS: CMCS: Prasugrel (NF) 10 MG PO SCH (17:15)
[2016-07-01] MEDS: Heparin VIAL(*) 5000 UNITS/ML VIAL (FIVE THOUSAND) SUBCUT SCH (21:26)
[2016-07-02] MEDS: Heparin VIAL(*) 5000 UNITS/ML VIAL (FIVE THOUSAND) SUBCUT SCH (05:32)
[2016-07-02 06:30] LABS: BUN/Creatinine Ratio 17.6 (8-20); Calcium 8.7 mg/dL (8.6-10.3); EGFR Non-African American 119.8 (>60); Potassium 4.2 mmol/L (3.5-5.0)
[2016-07-02 07:37] VITALS: BP 115/80
[2016-07-02] MEDS: CMCS: Prasugrel (NF) 10 MG PO SCH (08:44)
[2016-07-02] MEDS: Insulin LISPRO* 1 UNITS UNIT SUBCUT SCH ×2 (08:44→11:45)
[2016-07-02] MEDS: Aspirin Low Dose CHEW TAB* 81 MG PO SCH (08:44)
--- NOTE | 2016-07-03 12:01 | DS ---
DISCHARGE SUMMARY: DATE OF ADMISSION: 06/30/16 DATE OF DISCHARGE: 07/02/16 DISCHARGE DIAGNOSIS: Non-ST elevation myocardial infarction. SECONDARY DIAGNOSES: 1. Coronary artery disease status post stent to the right coronary artery and left anterior descending. 2. Type 2 diabetes. 3. Prior history of tobacco abuse. 4. Hypertension. DISCHARGE MEDICATIONS: 1. Nitroglycerin 0.4 mg sublingual q.5 minutes p.r.n. chest pain, maximum 3 doses. 2. Aspirin 81 mg p.o. daily. 3. Metformin 1000 mg p.o. b.i.d. 4. Lisinopril 10 mg p.o. daily. 5. Glipizide 5 mg p.o. b.i.d. 6. Atorvastatin 80 mg p.o. daily. Medication changes: Metoprolol succinate was increased to 50 mg p.o. daily. New Medication: Effient 10 mg p.o. daily. HOSPITAL COURSE: Mr. Francis is a 60-year-old male with past medical history as stated above, who presented to the emergency room on June 30 with complaints of right-sided chest pain, relieved by nitroglycerin. Although his EKG showed no new changes, troponin was 0.14. He was admitted for further evaluation and treatment. He was started on a heparin drip and he was taken to the wheelabrator operator by Dr. Urbina and he was found to have multivessel coronary artery disease that appears to be significant, involving the proximal LAD, mid LAD, distal LAD, also proximal diagonal 1 and diagonal 2, and also the proximal ramus intermedius and circumflex coronary artery, ranging from 60% to 80% stenosis. Widely patent stent in a very large caliber vessel, dominant right coronary artery. Mildly reduced left ventricular systolic function with an ejection fraction of 45% with inferior posterior and inferior apical wall hypokinesis. Dr. Urbina discussed the case with Dr. Terrell, and given the multivessel coronary artery disease, it was difficult to identify a culprit lesion causing his current symptoms, so the decision was to pursue Lexiscan Myoview nuclear stress test that showed a probably artifactual fixed defect of the inferior wall, but no reversible perfusion defect. This was felt to be a low risk stress test. The patient was seen in followup by Dr. Terrell and he felt that the moderate stenosis found on the cardiac cath of June 30 not ischemia producing, which is not surprising giving the angiogram. Potential mechanism for this episode of ACS is likely platelet formation with subsequent embolization. The patient has been off dual agent antiplatelet therapy, and given this episode and the fact that he has stent, he recommended lifelong double agent antiplatelet therapy. The patient had dyspnea on exertion with Brilinta, so Dr. Terrell recommended Effient with aspirin. He also recommended increasing his metoprolol dose to 50 mg and the patient tolerated it well. The patient ambulated on telemetry floor with no significant arrhythmias and no further episodes of chest pain. He was felt to be stable for discharge on July 02. 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 He will need a groin check with Dr. Urbina next week and he will need his regular followup with Dr. Woodward. The patient has diabetes and he states that he has been working to get better control, but he had issues with other medications in the past. He states that he had hypoglycemia with Trulicity in the past, but this was a medication that he felt gave him good results. His hemoglobin A1c on the day of admission was 8.1. He will follow up with Dr. Vasquez and he would like to discuss the possibility of trying Trulicity again, so may be if he could use metformin and Trulicity with a lower dose of glipizide he may be able to tolerate it, but I will leave his diabetes regimen to his PCP after the patient and his physician can discuss other options. PHYSICAL EXAMINATION: Vital Signs: Temperature is 98.0, heart rate is 80, respiratory rate is 16, oxygen saturation is 94% on room air, blood pressure is 115/80. General: The patient is a pleasant middle-aged male, sitting up in bed in no acute distress. CVS: Normal S1 and S2. Regular rate and rhythm. Chest: Breath sounds present bilaterally with no added sounds. Abdomen: Soft, nontender, nondistended. Bowel sounds are present. Extremities: No edema. His right groin has good pulse with no palpable hematoma, no visible ecchymosis , and no bruit on auscultation. Neurologic: The patient is alert, awake, and oriented x3. Able to move all 4 extremities. DIET: Heart healthy, consistent carb diet. ACTIVITY: As tolerated. DISPOSITION: To home. STATUS IN THE HOSPITAL: Inpatient. If you need more information, please feel free to call me at [phone] or please obtain the full medical records TIME SPENT: Approximately 45 minutes were spent to complete this discharge. CC: Dr. Vasquez; Dr. Woodward; Dr. Urbina; and Dr. Terrell * [id number]/[facility] #: [id number] MTDD
== END 2016-07-02 11:43 | disposition home or self-care (01) | DRG 190 ==
LOC: ED 06:35 → ICU 09:59 → MEDTELE 07-01 15:44
PROVIDERS: ADMIT Internal Medicine; ATTEND Internal Medicine
PROC: B2151ZZ Fluoroscopy of Left Heart using Low Osmolar Contrast (ICD-10-PCS; 2016-06-30)
PROC: 4A023N7 Measurement of Cardiac Sampling and Pressure, Left Heart, Percutaneous Approach (ICD-10-PCS; 2016-06-30)
PROC: B2111ZZ Fluoroscopy of Multiple Coronary Arteries using Low Osmolar Contrast (ICD-10-PCS; principal; 2016-06-30 11:30)
DX: I21.4 Non-ST elevation (NSTEMI) myocardial infarction (principal); E11.9 Type 2 diabetes mellitus without complications; I10 Essential (primary) hypertension; G47.33 Obstructive sleep apnea (adult) (pediatric); H54.8 Legal blindness, as defined in USA; I25.10 Atherosclerotic heart disease of native coronary artery without angina pectoris; E78.5 Hyperlipidemia, unspecified; R06.00 Dyspnea, unspecified; T45.525A Adverse effect of antithrombotic drugs, initial encounter; I25.2 Old myocardial infarction; Z83.3 Family history of diabetes mellitus; Z82.49 Family history of ischemic heart disease and other diseases of the circulatory system; Z82.3 Family history of stroke; Z87.891 Personal history of nicotine dependence; Z95.5 Presence of coronary angioplasty implant and graft; Z79.82 Long term (current) use of aspirin; Z79.84 Long term (current) use of oral hypoglycemic drugs; Z79.02 Long term (current) use of antithrombotics/antiplatelets
CPT/HCPCS: 36415; 71010; 78452; 80048; 80053; 80061; 82550; 82947; 83036; 83605; 83735; 83880; 84484; 84520; 85025; 85610; 85730; 87641; 93005; 93458; A9270-GY; A9502; C1760; C1887; J1644; J2250; J2785; J3010

== ENCOUNTER 2017-07-13 14:34 | Inpatient (IN) | payer BC ==
--- NOTE | 2017-07-13 15:24 | RAD ---
INDICATION: Chest pain COMPARISON: June 30, 2016 TECHNIQUE: An AP portable view obtained at 1507 hours is submitted. FINDINGS: Bones/Soft Tissues: There are no acute bony findings. Cardiomediastinal: The cardiomediastinal silhouette is normal. Lungs: There are no infiltrates. Pleura: There are no pleural effusions. Other: There is chronic elevation the right hemidiaphragm. IMPRESSION: NO ACTIVE DISEASE. CHRONIC ELEVATION RIGHT HEMIDIAPHRAGM.
[2017-07-13 15:26] LABS: ABS Basophils 0.1 10^3/ul (0-0.2); ABS Eosinophils 0.1 10^3/ul (0-0.6); ABS Monocytes 0.5 10^3/ul (0-0.8); ABS Neutrophils 11.1 10^3/ul (1.5-7.7); ABS Nucleated RBC 0 10^3/ul; Eosinophil % 0.9 % (0-6); Hematocrit 49 % (42-52); Hemoglobin 16.8 g/dl (14.0-18.0); Lymphocyte % 8.1 % (25-47); Mean Corpuscular HGB Conc 34 g/dl (31-36); Mean Corpuscular Hemoglobin 31 pg (27-31); Mean Corpuscular Volume 92 fL (80-94); Mean Platelet Volume 8 um3 (7.4-10.4); Nucleated Red Blood Cells % 0; Platelet Count 204 10^3/ul (150-450); Red Blood Count 5.34 10^6/ul (4.0-5.4); Red Cell Distribution Width 13 % (10.5-15); White Blood Count 12.9 10^3/ul (3.5-10.8)
[2017-07-13 15:45] LABS: EGFR Non-African American 77.4 (>60)
[2017-07-13] MEDS ORDERED: Acetaminophen TAB* 325 MG PO PRN (17:23)
[2017-07-13] MEDS ORDERED: Morphine INJ* 2 MG/ML 1 ML CARPUJECT IV PRN (17:23)
[2017-07-13] MEDS ORDERED: Dextrose 50% Syringe 50 ML* 25 GM/50 ML SYRINGE IV PUSH PRN (17:33)
[2017-07-13] MEDS ORDERED: NS 0.9% 1000 ML* 1,000 ML IV SCH (17:45)
[2017-07-13] MEDS ORDERED: Clopidogrel TAB* 75 MG PO SCH (18:00)
[2017-07-13] MEDS ORDERED: Heparin DRIP 25,000 UNITS(*) 25,000 UNITS/500 ML BAG IVPB SCH (21:15)
[2017-07-13] MEDS ORDERED: Heparin VIAL(*) 5000 UNITS/ML VIAL (FIVE THOUSAND) IV SCH (22:00)
[2017-07-13] MEDS ORDERED: Heparin VIAL(*) 5000 UNITS/ML VIAL (FIVE THOUSAND) SUBCUT SCH (22:00)
[2017-07-13] MEDS: Insulin GLARGINE(*) 1 UNITS UNIT SUBCUT SCH (22:29)
[2017-07-13] MEDS: Insulin LISPRO* 1 UNITS UNIT SUBCUT SCH (22:30)
--- NOTE | 2017-07-13 22:34 | HP ---
CC: Dr. Eren Vasquez; Dr. Woodward * HISTORY AND PHYSICAL: DATE OF ADMISSION: 07/13/17 PRIMARY CARE PROVIDER: Dr. Eren Vasquez. CHIEF COMPLAINT: Chest pain. HISTORY OF PRESENT ILLNESS: Mr. Francis is a 61-year-old male with history of coronary artery disease status post 5 stents total, all of them acquired in 2014 who presented to [facility] complaining of chest pain. 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 He said that he was working on some piping and was sowing pipes and putting them together. He started having substernal chest pressure radiating to the right chest and to the right scapula. It was not associated with diaphoresis or shortness of breath and it was not pleuritic. After the pain lasted for several minutes, he decided to take a sublingual nitroglycerin. He was standing up when he took the nitroglycerin and he developed generalized weakness. He felt that he is going to faint, but his pain started resolving. He stated that overall his pain lasted approximately 30 minutes. Currently, he is chest pain free. The patient is going to be placed under overnight observation with a diagnosis of chest pain to rule out angina. PAST MEDICAL HISTORY: 1. History of severe coronary artery disease, status post 5 stents in 2014. He had 1 or 2 stents initially in 2014 in August to his LAD. Remaining 3 stents were placed in January of the same year into his right coronary artery. The patient had received cardiac catheterization in June 2016 when he was noted to have diffuse coronary artery disease with circumflex artery stenotic up to 80 % and patent stent with RCA. 2. In June of 2016, the patient was evaluated for ST elevation [place]. At that point, his troponins were up to 0.77. Cardiac catheterization showed diffuse coronary artery disease, but no culprit lesion was identified. There was no culprit lesion identified after a cardiac stress test was performed during the same hospital stay and the patient was advised to take Effient and aspirin lifelong. The patient stated that he had not been taking Effient due to it being bernstein prohibitive. 3. The patient also has a history of diabetes. MEDICATIONS: Include: 1. Aspirin 81 mg daily. 2. Nitroglycerin on a p.r.n. basis. 3. Metoprolol succinate 50 mg daily. 4. Insulin glargine 10 units daily. 5. Metformin 1000 mg b.i.d. 6. Glipizide 5 mg b.i.d. 7. Victoza 1.2 mg subcutaneously daily. 8. Lipitor 80 mg daily. 9. Lisinopril 10 mg daily. ALLERGIES: No known drug allergies. However, the patient stated that he got short of breath when he was taking Brilinta. FAMILY HISTORY: Positive for both father and mother having heart disease in their 50s. Father of heart attack at the age of 46. 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 His surrogate is his son, Musa. He quit smoking in 2016. There is no history of alcohol abuse. REVIEW OF SYSTEMS: Please see history of present illness. The patient said that he has not used his nitroglycerin for about a year. He has fair exercise tolerance and has not had chest pain for approximately a year. 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 PHYSICAL EXAMINATION GENERAL: The patient is a very pleasant 61-year-old male, who is in no acute distress. Alert, awake and oriented x3. VITAL SIGNS: Blood pressure 115/74, heart rate of 81 and regular, respiratory rate is 15, oxygen saturation 96% on room air, temperature of 98.3. HEENT: Head: Atraumatic, normocephalic. Eyes: Pupils are uneven with the left pupil being minimally reactive to light at 3 to 4 mm. The right pupil is 2 mm, reactive to light. The left eye conjunctiva shows injected vasculature. Oropharynx clear. Mucosa moist. NECK: Supple. No JVD. No bruits bilaterally. RESPIRATORY: Clear to auscultation bilaterally. CARDIOVASCULAR: Regular rate and rhythm. No murmur. ABDOMEN: Soft, nontender. Bowel sounds are present in all 4 quadrants. EXTREMITIES: There is no edema. Pulses are +2 bilaterally. No clubbing or cyanosis. NEUROLOGIC: On neuro evaluation, speech is clear. Cranial nerves II through XII grossly intact. Motor strength is 5/5 bilaterally. PSYCHIATRIC EVALUATION: Oriented x3 with no evidence of anxiety or depression. LABORATORY DATA: Showed sodium 131, potassium 5.1, chloride 100, carbon dioxide 27, BUN 14, creatinine 0.99. Random glucose level 220. Liver functions were unremarkable. Troponin of 0.01. TSH of 3.6. CBC: White blood cell count 12.9, hemoglobin of 16.8, hematocrit of 49, and platelets of 204. The patient's EKG showed nonspecific intraventricular conduction delay with a heart rate of 74 beats per minute. Comparing with an EKG from June 2016, there were no significant changes noted. Portable chest x-ray was assessed by the radiologist as "no active disease. Chronic elevation of right hemidiaphragm." ASSESSMENT AND PLAN: 1. Angina like chest pain in a patient with a history of significant coronary artery disease and 5 stents. I briefly discussed the patient with the station attendant electronic design engineer. At this point, the recommendation is to continue trending troponins. If the troponins continue to be negative, the patient will undergo a treadmill stress test in the morning. 2. The patient stated that the Effient is too expensive for him to take. I am going to place the patient on Plavix and aspirin. 3. For diabetes management, the patient's oral hypoglycemics are going to be held. The patient is going to receive half dose of his Lantus tonight in preparation for being n.p.o. for stress test in the morning. 4. In regards to the patient's hyperlipidemia, the patient is going to be continued on atorvastatin and fasting lipid profile is going to be obtained in the morning. 5. For DVT prophylaxis, the patient is going to be placed on heparin subcutaneously. 6. The patient's code status is full and his surrogate is his son. TIME SPENT: Approximately 60 minutes were spent on admission of this patient, more than half of that time was spent [id number] with the patient during the interview and physical exam. [id number]/[facility] #: [id number] GEORGE
[2017-07-14 06:00] LABS: ABS Basophils 0 10^3/ul (0-0.2); ABS Eosinophils 0.3 10^3/ul (0-0.6); ABS Lymphocytes 1.6 10^3/ul (1.0-4.8); ABS Monocytes 0.5 10^3/ul (0-0.8); ABS Neutrophils 4.8 10^3/ul (1.5-7.7); ABS Nucleated RBC 0 10^3/ul; Eosinophil % 4.3 % (0-6); Hematocrit 48 % (42-52); Hemoglobin 16.3 g/dl (14.0-18.0); Lymphocyte % 21.6 % (25-47); Mean Corpuscular HGB Conc 34 g/dl (31-36); Mean Corpuscular Hemoglobin 31 pg (27-31); Mean Corpuscular Volume 91 fL (80-94); Mean Platelet Volume 9 um3 (7.4-10.4); Nucleated Red Blood Cells % 0.1; Platelet Count 186 10^3/ul (150-450); Red Blood Count 5.21 10^6/ul (4.0-5.4); Red Cell Distribution Width 13 % (10.5-15); White Blood Count 7.3 10^3/ul (3.5-10.8)
[2017-07-14 06:22] LABS: EGFR Non-African American 106.6 (>60)
[2017-07-14] MEDS ORDERED: metFORMIN* 1,000 MG TAB PO SCH (07:30)
--- NOTE | 2017-07-14 08:22 | CONSULT ---
Subjective Date of Service: 07/14/17 Interval History: Admission Date: 07/13/17 Consult date: 07/14/2017 Service: Hospitalist Supervisor Customer Complaint Service: Dr. Woodward PMD Dr. Eren Vasquez CHIEF COMPLAINT: Chest pain. Reason for consult: Type 1 OH HISTORY OF PRESENT ILLNESS: Mr. Francis is a 61-year-old man with a history of CAD/OH/PCI, diabetes, prior tobacco use who most recently had a NSTEMI 1 year ago and had multivessel CAD on angiogram without clear culprit and stress test showed a inferior wall infarct with mild krissy-infarct ischemia and was medically treated. 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 He began to have right sided chest discomfort associated with "gas." He had never taken a SL NTG before and decided to try one yesterday afternoon. It relieved his angina but he become dizzy and hot like he was going to pass out. He was taken to [facility] and EMS was called. He has remained without chest discomfort while here. He ruled in for a type 1 OH with serial troponins. He denies any dyspnea , edema, palpitations or syncope. He had trouble getting his effient refilled and was too expensive also so has not been taking. He has not been taking aspirin because was not told he needed to and was not given as a prescription. He was given one dose of 75 mg of plavix last evening. PAST MEDICAL/surgical HISTORY: CAD/OH/PCI DM HTN Dyslipidemia Macular degeneration, detached retina right eye ALLERGIES: No known drug allergies. However, the patient stated that he got short of breath when he was taking Brilinta. FAMILY HISTORY: Positive for both father and mother having heart disease in their 50s. Father of heart attack at the age of 46. 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 His surrogate is his son, Musa. He quit smoking in 2016. Medications Active Medications: Acetaminophen (Tylenol Tab*) 650 mg PO Q4H PRN PRN Reason: FEVER/PAIN Aspirin (Aspirin Ec Low Dose*) 81 mg PO DAILY SHAHANA Atorvastatin Calcium (Lipitor*) 80 mg PO DAILY SHAHANA Dextrose (D50w Syringe 50 Ml*) 12.5 gm IV PUSH .FOR FS < 60 - SS PRN PRN Reason: FS < 60 Heparin Sodium (Porcine) (Heparin Vial(*)) 0 units IV .PER PROTOCOL SHAHANA PRN Reason: Protocol Last Admin: 07/13/17 22:32 Dose: 7,000 units Heparin Sodium/Dextrose (Heparin Drip 25,000 Units(*)) 25,000 units in 500 mls @ 0 mls/hr IVPB .PER RATE SHAHANA; Per Protocol PRN Reason: Protocol Last Admin: 07/13/17 22:36 Dose: 30 mls/hr Insulin Glargine (Lantus(*)) 5 units SUBCUT BEDTIME SHAHANA Last Admin: 07/13/17 22:29 Dose: 5 units Insulin Human Lispro (Humalog*) 0 units SUBCUT ACHS SHAHANA PRN Reason: Protocol Last Admin: 07/13/17 22:30 Dose: 2 units Lisinopril (Prinivil Tab*) 10 mg PO DAILY [facility] Metoprolol Succinate (Toprol Xl Tab*) 50 mg PO DAILY [facility] Home Medications: Atorvastatin* [Lipitor 80 MG*] 80 mg PO DAILY 02/02/15 [History Confirmed ] Lisinopril TAB* [Prinivil TAB 5 MG*] 10 mg PO DAILY 02/02/15 [History Confirmed 07/13/17] glipiZIDE TAB* [Glucotrol TAB*] 5 mg PO BID 02/02/15 [History Confirmed 07/13/17 ] metFORMIN* [Glucophage 500 MG TAB *] 1,000 mg PO BID AC 02/02/15 [History Confirmed 07/13/17] Nitroglycerin TAB 0.4 MG* 0.4 mg SL Q5M PRN 07/01/16 [History Confirmed 07/13/17 ] Insulin GLARGINE(*) [Lantus(*)] 10 units SUBCUT QPM 07/13/17 [History Confirmed 07/13/17] Liraglutide (NF) [Victoza (NF)] 1.2 mg SUBCUT QAM 07/13/17 [History Confirmed ] Metoprolol Succinate [Metoprolol Succinate ER] 50 mg PO DAILY 07/13/17 [History Confirmed 07/13/17] Review of Systems - Measurements Intake and Output: Intake and Output Last 24 Hours 07/12/17 07/13/17 07/14/17 07/15/17 06:59 06:59 06:59 06:59 Intake Total 236 Balance 236 Weight 199 lb 9.6 oz Intake: Heparin 236 Oral 0 Other: Estimated Void Medium # Bowel Movements 0 # Voids 1 - Review of Systems Constitutional Symptoms: Negative: Weight Gain, Weight Loss, Weakness, Fatigue, Fever Dermatology: Negative: Rash, Skin Lesions HEENT: Negative: Change in Hearing, Vertigo, Dental Problems Eyes: Negative: Change in Vision, Double Vision Thyroid: Negative: Thyroid Nodule, Heat Intolerance, Sweatiness, Tremor, Frequent Defecation, Constipation, Palpitations, Primary Hypothyroidism, Primary Hyperthyroidism, Weight Loss, Weight Gain Pulmonary: Negative: Cough, Sputum, Hemoptysis, Wheezing, Respiratory Distress, Shortness of Breath, COPD Cardiology: Positive: Chest Pain, Faintness Negative: Shortness of Breath, Palpitations, Swelling of Ankles, Peripheral Vascular Dis, Edema, Syncope, Claudication, Paroxysmal Nocturnal Dyspnea, Orthopnea Gastroenterology: Positive: Indigestion Negative: Vomiting, Anorexia, Difficulty Swallowing, Heartburn, Constipation , Diarrhea, Blood in Stools, Change in Bowel Habits, Haematemesis, Melena Genital - Urinary: Negative: Dysuria, Hematuria, Polyuria Musculoskeletal: Negative: Joint Pain, Joint Stiffness Endocrinology: Positive: Diabetes Negative: Family Hx Endocrine Disorders, Obesity, Diabetic Foot Ulcers, Calluses, Polydipsia, Polyuria Hematologic/Lymphatic: Negative: Easy Brusing, Hx Leukemia, Hx Lymphoma, Use of Anticoagulant, Use of Antiplatelet Drugs Neurology: Positive: Dizziness Negative: Headaches, Migraines, Change in Balancing, Change in Coordination, Change in Memory, Change in Speech, Change in Sphincter Function, Change in Walking, Numbness\\Paresthesiae, Unexplained Weakness, Hx of Stroke\\TIA, Hx Seizures Psychiatry: Negative: Depressed Mood, Adhedonia, Weight Change, Unusual Anxiety, Suicidal Ideation Allergic/Immunologic: Negative: Hx Anaphylaxis, Hx Angioedema, Hx HIV, Immunocompromise Review of Systems Statement: All other review of systems negative, unless stated above. Objective Vital Signs: Temp Pulse Resp BP Pulse Ox 97.9 F 81 18 112/78 96 07/14/17 03:34 07/14/17 03:34 07/14/17 03:34 07/14/17 03:34 07/14/17 03:34 Oxygen Devices in Use Now: None Appearance: nad, pleasant Ears/Nose/Mouth/Throat: Clear Oropharnyx, Mucous Membranes Moist Neck: NL Appearance and Movements; NL JVP Respiratory: Symmetrical Chest Expansion and Respiratory Effort, Clear to Auscultation Cardiovascular: NL Sounds; No Murmurs; No JVD, RRR, No Edema Abdominal: NL Sounds; No Tenderness; No Distention Extremities: No Edema Skin: No Rash or Ulcers Neurological: Alert and Oriented x 3 Laboratory Results: 07/14/17 05:37 07/14/17 05:37 APTT 27.9 seconds (26.0-36.3) 07/13/17 15:20 Total Bilirubin 0.70 mg/dL (0.2-1.0) 07/13/17 15:20 AST 25 U/L (13-39) 07/13/17 15:20 ALT 49 U/L (7-52) 07/13/17 15:20 Alkaline Phosphatase 61 U/L (34-104) 07/13/17 15:20 CK-MB (CK-2) 3.5 ng/mL (0.6-6.3) 07/13/17 15:20 B-Natriuretic Peptide 16 pg/mL (-100) 07/13/17 15:20 Total Protein 6.5 g/dL (6.4-8.9) 07/13/17 15:20 Albumin 3.6 g/dL (3.2-5.2) 07/13/17 15:20 Globulin 2.9 g/dL (2-4) 07/13/17 15:20 Albumin/Globulin Ratio 1.2 (1-3) 07/13/17 15:20 Triglycerides 83 mg/dL 07/14/17 05:37 Cholesterol 90 mg/dL 07/14/17 05:37 LDL Cholesterol 44 mg/dL 07/14/17 05:37 HDL Cholesterol 29.4 mg/dL 07/14/17 05:37 TSH 3.67 mcIU/mL (0.34-5.60) 07/13/17 15:20 07/13/17 07/14/17 20:10 00:50 Troponin I 0.22 H* 0.59 H* Diagnostic Imagin08/2014: NSTEMI s/p PCI to proximal LAD 01/2015: Inferoposterior OH: PCI to s/p PCI to RCA 06/2016: NSTEMI: Multivessel CAD without clear culprit, inferior hypokinesis LVEF 45-50% on LV gram. Stress MPI with inferior wall infarct with mild krissy- infarct ischemia EKG Data: 07/13/2017: NSR, IVCD, unchanged serially, grossly unchanged from 06/30/2016 Assessment/Plan Pavel Francis is a 61 year old man with a history of OH, CAD/PCI, DM, prior tobacco use presents with a type 1 plaque disruption OH in the setting of not being on aspirin or any other anti-platelet. No recurrent angina, CHF, hemodynamic instability or ventricular arrhythmias. - Cardiac catheterization with intent for revascularization indicated and recommended. Risks, benefits and alternatives discussed and patient wished to proceed. Will arrange with Dr. Terrell today. - Continue aspirin 81 mg po daily. Would give as a prescription with refills to ensure patient is adherent - Would use clopidogrel long-term given issues as above in HPI. Received 75 mg po yesterday, hold further for now in case needs CABG - Continue heparin gtt - Continue metoprolol - Continue atorvastatin - DM management per primary service, would check [id number] Thank you for allowing me to participate in the cardiovascular care of this patient. Please do not hesitate to contact me with questions or concerns.
--- NOTE | 2017-07-14 08:24 | ED ---
Laura Lemus Gabriel, scribed for Steven Boston MD on 07/13/17 at 1449 . HPI Chest Pain - HPI Summary HPI Summary: This patient is a 61 year old M BIBA to [facility] accompanied by his family with a chief complaint of CP that began earlier today. The patient rates the stabbing pain 8/10 in severity and radiating into his back. Patient reports gas. Patient denies n/v, diaphoresis, and light headedness. Upon onset patient took a NTG which relieved his pain but made him feel warm. The onset occurred during exertion he was performing tasks for his job. Hx of CAD, has 5 stents, and had an SC last year. Patient does not take a blood thinner but takes 81 ASA daily. Given 324 by EMS. - History of Current Complaint Chief Complaint: EDChestPainROMI Time Seen by Provider: 07/13/17 14:42 Hx Obtained From: Patient Onset/Duration: Still Present Timing: Constant Initial Severity: Severe Current Severity: Moderate Pain Intensity: 8 Pain Scale Used: 0-10 Numeric Chest Pain Location: Diffuse Chest Pain Radiates: Yes Chest Pain Radiates To:: Back Character: Other: - stabbing Alleviating Factor(s): Medication - NTG Associated Signs and Symptoms: Positive: Negative - n/v, diaphoresis, and light headedness, Other: - gas - Additional Pertinent History Primary Care Physician: [id number] - Allergy/Home Medications Allergies/Adverse Reactions: Allergies Allergy/AdvReac Type Severity Reaction Status Date / Time No Known Allergies Allergy Verified 07/13/17 14:46 Home Medications: Home Medications Insulin GLARGINE(*) [Lantus(*)] 10 units SUBCUT QPM 07/13/17 [History Confirmed 07/13/17] Liraglutide (NF) [Victoza (NF)] 1.2 mg SUBCUT QAM 07/13/17 [History Confirmed ] Metoprolol Succinate [Metoprolol Succinate ER] 50 mg PO DAILY 07/13/17 [History Confirmed 07/13/17] PMH/Surg Hx/FS Hx/Imm Hx Endocrine/Hematology History: Reports: Hx Diabetes Cardiovascular History: Reports: Hx Angina, Hx Coronary Artery Disease, Hx Hypercholesterolemia, Hx Hypertension, Hx Myocardial Infarction Denies: Hx Congestive Heart Failure Respiratory History: Denies: Hx Asthma, Hx Chronic Obstructive Pulmonary Disease (COPD) History: Denies: Hx Renal Disease Musculoskeletal History: Denies: Hx Arthritis, Hx Osteoporosis Sensory History: Reports: Hx Contacts or Glasses, Hx Legally Blind Opthamlomology History: Reports: Hx Contacts or Glasses, Hx Legally Blind - Surgical History Surgery Procedure, Year, and Place: Left inguinal hernia repair. Left eye surgery s/p retinal detachment and lazy eye surgery Hx Anesthesia Reactions: No Infectious Disease History: No Infectious Disease History: Denies: Hx of Known/Suspected MRSA, Traveled Outside the [place] in Last 30 Days - Family History Known Family History: Positive: Cardiac Disease, Hypertension, Diabetes Negative: Renal Disease, Respiratory Disease, Seizure Disorder, Blood Disorder - Social History Occupation: Employed Full-time Lives: With Family Alcohol Use: Occasionally Substance Use Type: Reports: None Smoking Status (MU): Former Smoker Type: Cigarettes Amount Used/How Often: 1/2 PPD Length of Time of Smoking/Using Tobacco: 6 Have You Smoked in the Last Year: No Review of Systems Negative: Skin Diaphoresis Positive: Chest Pain Negative: Vomiting, Nausea Neurological: Negative - light headedness All Other Systems Reviewed And Are Negative: Yes Physical Exam - Summary Physical Exam Summary: VITAL SIGNS: Reviewed. GENERAL: Patient is a well-developed and nourished male who is lying comfortable in the stretcher. Patient is not in any acute respiratory distress. HEAD AND FACE: No signs of trauma. No ecchymosis, hematomas or skull depressions. No sinus tenderness. EYES: PERRLA, EOMI x 2, No injected conjunctiva, no nystagmus. EARS: Hearing grossly intact. Ear canals and tympanic membranes are within normal limits. MOUTH: Oropharynx within normal limits. NECK: Supple, trachea is midline, no adenopathy, no JVD, no carotid bruit, no c- spine tenderness, neck with full ROM. CHEST: Symmetric, no tenderness at palpation LUNGS: Clear to auscultation bilaterally. No wheezing or crackles. CVS: Regular rate and rhythm, S1 and S2 present, no murmurs or gallops appreciated. ABDOMEN: Soft, non-tender. No signs of distention. No rebound no guarding, and no masses palpated. Bowel sounds are normal. EXTREMITIES: FROM in all major joints, no edema, no cyanosis or clubbing. NEURO: Alert and oriented x 3. No acute neurological deficits. Speech is normal and follows commands. SKIN: Dry and warm Triage Information Reviewed: Yes Vital Signs On Initial Exam: Initial Vitals Temp Pulse Resp BP Pulse Ox 98.3 F 75 14 121/85 97 07/13/17 14:43 07/13/17 14:43 07/13/17 14:43 07/13/17 14:43 07/13/17 14:43 Vital Signs Reviewed: Yes Diagnostics - Vital Signs Vital Signs Temp Pulse Resp BP Pulse Ox 07/13/17 14:43 98.3 F 75 14 121/85 97 - Laboratory Lab Results: Lab Results 07/13/17 07/13/17 07/13/17 Range/Units 15:20 15:20 15:20 WBC 12.9 H (3.5-10.8) 10^3/ul RBC 5.34 (4.0-5.4) 10^6/ul Hgb 16.8 (14.0-18.0) g/dl Hct 49 (42-52) % MCV 92 (80-94) fL MCH 31 (27-31) pg MCHC 34 (31-36) g/dl RDW 13 (10.5-15) % Plt Count 204 (150-450) 10^3/ul MPV 8 (7.4-10.4) um3 Neut % (Auto) 86.5 H (38-83) % Lymph % (Auto) 8.1 L (25-47) % [place] % (Auto) 4.0 (1-9) % Eos % (Auto) 0.9 (0-6) % Baso % (Auto) 0.5 (0-2) % Absolute Neuts (auto) 11.1 H (1.5-7.7) 10^3/ul Absolute Lymphs (auto) 1.0 (1.0-4.8) 10^3/ul Absolute Monos (auto) 0.5 (0-0.8) 10^3/ul Absolute Eos (auto) 0.1 (0-0.6) 10^3/ul Absolute Basos (auto) 0.1 (0-0.2) 10^3/ul Absolute Nucleated RBC 0 10^3/ul Nucleated RBC % 0 APTT 27.9 (26.0-36.3) seconds Sodium (133-145) mmol/L Potassium (3.5-5.0) mmol/L Chloride (101-111) mmol/L Carbon Dioxide (22-32) mmol/L Anion Gap (2-11) mmol/L BUN (6-24) mg/dL Creatinine (0.67-1.17) mg/dL Est GFR ( Amer) (>60) Est GFR (Non-Af Amer) (>60) BUN/Creatinine Ratio (8-20) Glucose (70-100) mg/dL Lactic Acid (0.5-2.0) mmol/L Calcium (8.6-10.3) mg/dL Total Bilirubin (0.2-1.0) mg/dL AST (13-39) U/L ALT (7-52) U/L Alkaline Phosphatase (34-104) U/L Total Creatine Kinase (10-223) U/L CK-MB (CK-2) (0.6-6.3) ng/mL Troponin I (<0.04) ng/mL B-Natriuretic Peptide 16 ( - 100) pg/mL Total Protein (6.4-8.9) g/dL Albumin (3.2-5.2) g/dL Globulin (2-4) g/dL Albumin/Globulin Ratio (1-3) TSH (0.34-5.60) mcIU/mL 07/13/17 07/13/17 Range/Units 15:20 15:20 WBC (3.5-10.8) 10^3/ul RBC (4.0-5.4) 10^6/ul Hgb (14.0-18.0) g/dl Hct (42-52) % MCV (80-94) fL MCH (27-31) pg MCHC (31-36) g/dl RDW (10.5-15) % Plt Count (150-450) 10^3/ul MPV (7.4-10.4) um3 Neut % (Auto) (38-83) % Lymph % (Auto) (25-47) % [place] % (Auto) (1-9) % Eos % (Auto) (0-6) % Baso % (Auto) (0-2) % Absolute Neuts (auto) (1.5-7.7) 10^3/ul Absolute Lymphs (auto) (1.0-4.8) 10^3/ul Absolute Monos (auto) (0-0.8) 10^3/ul Absolute Eos (auto) (0-0.6) 10^3/ul Absolute Basos (auto) (0-0.2) 10^3/ul Absolute Nucleated RBC 10^3/ul Nucleated RBC % APTT (26.0-36.3) seconds Sodium 131 L (133-145) mmol/L Potassium 5.1 H (3.5-5.0) mmol/L Chloride 100 L (101-111) mmol/L Carbon Dioxide 27 (22-32) mmol/L Anion Gap 4 (2-11) mmol/L BUN 14 (6-24) mg/dL Creatinine 0.99 (0.67-1.17) mg/dL Est GFR ( Amer) 99.5 (>60) Est GFR (Non-Af Amer) 77.4 (>60) BUN/Creatinine Ratio 14.1 (8-20) Glucose 220 H (70-100) mg/dL Lactic Acid 1.5 (0.5-2.0) mmol/L Calcium 8.7 (8.6-10.3) mg/dL Total Bilirubin 0.70 (0.2-1.0) mg/dL AST 25 (13-39) U/L ALT 49 (7-52) U/L Alkaline Phosphatase 61 (34-104) U/L Total Creatine Kinase 91 (10-223) U/L CK-MB (CK-2) 3.5 (0.6-6.3) ng/mL Troponin I 0.01 (<0.04) ng/mL B-Natriuretic Peptide ( - 100) pg/mL Total Protein 6.5 (6.4-8.9) g/dL Albumin 3.6 (3.2-5.2) g/dL Globulin 2.9 (2-4) g/dL Albumin/Globulin Ratio 1.2 (1-3) TSH 3.67 (0.34-5.60) mcIU/mL Result Diagrams: 07/14/17 05:37 07/14/17 05:37 Lab Statement: Any lab studies that have been ordered have been reviewed, and results considered in the medical decision making process. - Radiology CXR Radiology Interpretation Completed By: Radiologist - NO ACTIVE DISEASE. CHRONIC ELEVATION RIGHT HEMIDIAPHRAGM. ED physician has reviewed this radiology report. - EKG 1440 Cardiac Rate: NL EKG Rhythm: Sinus Rhythm - at 74 BPM EKG Interpretation: no ST elevations, Q waves in 3 and AVF Chest Pain Course/Dx - Course Assessment/Plan: This patient is a 60 year old F presenting to [facility] accompanied by her nurse with a chief complaint of increased confusion lasting the last few weeks. Patient denies GARCIA and dizziness. The patients nurse states she is non-compliant with her psychiatric medication and she is wondering if she is taking to correct medication and if the dosing is accurate. Additionally she expressed concern hat she does not have a good psychiatrist and is requesting a mental health evaluation. Patient believes she has a kidney infection but it has not been diagnosed and she is not on any medication. . CT Brain reveals, per radiologist, 1. NO ACUTE INTRACRANIAL PATHOLOGY. 2. CHRONIC SMALL VESSEL ISCHEMIC CHANGE WITH CHRONIC LACUNAR INFARCTS OF THE BASAL. GANGLIA BILATERALLY. Test results with no significant abnormalities except for increased WBC and potassium. troponin in 0.01. However due to the chest pain I discussed the patient care with Dr. valadez to rule out ACS. The pt is hemodynamically stable, alert and oriented x3. . Patient will be admited. The patient is agreeable with this plan. - Chest Pain Differential Diagnosis/HQI/PQRI: Acute SC, ACS, Angina, CHF, Chest Wall, GI Disease - Diagnoses Provider Diagnoses: Chest pain, rule out acs - Provider Notifications Discussed Care Of Patient With: Cielo Valadez Time Discussed With Above Provider: 16:40 Instructed by Provider To: Other - We discussed patient care with Dr. Valadez and they accepted the patient for admission. Discharge - Discharge Plan Condition: Fair Disposition: ADMITTED TO [facility] documentation as recorded by the Laura alfonso Gabriel accurately reflects the service I personally performed and the decisions made by , Steven Boston MD.
--- NOTE | 2017-07-14 08:58 | PN ---
Subjective Date of Service: 07/14/17 Interval History: Pt has had no CP since arrival to ED. Objective Active Medications: Acetaminophen (Tylenol Tab*) 650 mg PO Q4H PRN PRN Reason: FEVER/PAIN Aspirin (Aspirin Ec Low Dose*) 81 mg PO DAILY SHAHANA Atorvastatin Calcium (Lipitor*) 80 mg PO DAILY [facility] Dextrose (D50w Syringe 50 Ml*) 12.5 gm IV PUSH .FOR FS < 60 - SS PRN PRN Reason: FS < 60 Heparin Sodium (Porcine) (Heparin Vial(*)) 0 units IV .PER PROTOCOL SHAHANA PRN Reason: Protocol Last Admin: 07/13/17 22:32 Dose: 7,000 units Heparin Sodium/Dextrose (Heparin Drip 25,000 Units(*)) 25,000 units in 500 mls @ 0 mls/hr IVPB .PER RATE SHAHANA; Per Protocol PRN Reason: Protocol Last Admin: 07/13/17 22:36 Dose: 30 mls/hr Insulin Glargine (Lantus(*)) 5 units SUBCUT BEDTIME SHAHANA Last Admin: 07/13/17 22:29 Dose: 5 units Insulin Human Lispro (Humalog*) 0 units SUBCUT ACHS SHAHANA PRN Reason: Protocol Last Admin: 07/13/17 22:30 Dose: 2 units Lisinopril (Prinivil Tab*) 10 mg PO DAILY [facility] Metoprolol Succinate (Toprol Xl Tab*) 50 mg PO DAILY [facility] Vital Signs - 8 hr 07/14/17 03:34 Temperature 97.9 F Pulse Rate 81 Respiratory 18 Rate Blood Pressure 112/78 (mmHg) O2 Sat by Pulse 96 Oximetry Oxygen Devices in Use Now: None Appearance: 61 yo m in nAD, aAOx3 Eyes: No Scleral Icterus, - - left pupil larger minimally reactive to light Ears/Nose/Mouth/Throat: NL Teeth, Lips, Gums, Mucous Membranes Moist Neck: NL Appearance and Movements; NL JVP, Trachea Midline Respiratory: Symmetrical Chest Expansion and Respiratory Effort, Clear to Auscultation Cardiovascular: NL Sounds; No Murmurs; No JVD, RRR Abdominal: NL Sounds; No Tenderness; No Distention, No Hepatosplenomegaly Lymphatic: No Cervical Adenopathy Extremities: No Edema, No Clubbing, Cyanosis Skin: No Rash or Ulcers, No Nodules or Sclerosis Neurological: Alert and Oriented x 3, NL Muscle Strength and Tone Result Diagrams: 07/14/17 05:37 07/14/17 05:37 Additional Lab and Data: Lab Results 07/13/17 07/13/17 07/13/17 Range/Units 15:20 15:20 15:20 WBC 12.9 H (3.5-10.8) 10^3/ul RBC 5.34 (4.0-5.4) 10^6/ul Hgb 16.8 (14.0-18.0) g/dl Hct 49 (42-52) % MCV 92 (80-94) fL MCH 31 (27-31) pg MCHC 34 (31-36) g/dl RDW 13 (10.5-15) % Plt Count 204 (150-450) 10^3/ul MPV 8 (7.4-10.4) um3 Neut % (Auto) 86.5 H (38-83) % Lymph % (Auto) 8.1 L (25-47) % Republic % (Auto) 4.0 (1-9) % Eos % (Auto) 0.9 (0-6) % Baso % (Auto) 0.5 (0-2) % Absolute Neuts (auto) 11.1 H (1.5-7.7) 10^3/ul Absolute Lymphs (auto) 1.0 (1.0-4.8) 10^3/ul Absolute Monos (auto) 0.5 (0-0.8) 10^3/ul Absolute Eos (auto) 0.1 (0-0.6) 10^3/ul Absolute Basos (auto) 0.1 (0-0.2) 10^3/ul Absolute Nucleated RBC 0 10^3/ul Nucleated RBC % 0 APTT 27.9 (26.0-36.3) seconds Sodium (133-145) mmol/L Potassium (3.5-5.0) mmol/L Chloride (101-111) mmol/L Carbon Dioxide (22-32) mmol/L Anion Gap (2-11) mmol/L BUN (6-24) mg/dL Creatinine (0.67-1.17) mg/dL Est GFR ( Amer) (>60) Est GFR (Non-Af Amer) (>60) BUN/Creatinine Ratio (8-20) Glucose (70-100) mg/dL Lactic Acid (0.5-2.0) mmol/L Calcium (8.6-10.3) mg/dL Total Bilirubin (0.2-1.0) mg/dL AST (13-39) U/L ALT (7-52) U/L Alkaline Phosphatase (34-104) U/L Total Creatine Kinase (10-223) U/L CK-MB (CK-2) (0.6-6.3) ng/mL Troponin I (<0.04) ng/mL B-Natriuretic Peptide 16 ( - 100) pg/mL Total Protein (6.4-8.9) g/dL Albumin (3.2-5.2) g/dL Globulin (2-4) g/dL Albumin/Globulin Ratio (1-3) TSH (0.34-5.60) mcIU/mL 07/13/17 07/13/17 Range/Units 15:20 15:20 WBC (3.5-10.8) 10^3/ul RBC (4.0-5.4) 10^6/ul Hgb (14.0-18.0) g/dl Hct (42-52) % MCV (80-94) fL MCH (27-31) pg MCHC (31-36) g/dl RDW (10.5-15) % Plt Count (150-450) 10^3/ul MPV (7.4-10.4) um3 Neut % (Auto) (38-83) % Lymph % (Auto) (25-47) % Republic % (Auto) (1-9) % Eos % (Auto) (0-6) % Baso % (Auto) (0-2) % Absolute Neuts (auto) (1.5-7.7) 10^3/ul Absolute Lymphs (auto) (1.0-4.8) 10^3/ul Absolute Monos (auto) (0-0.8) 10^3/ul Absolute Eos (auto) (0-0.6) 10^3/ul Absolute Basos (auto) (0-0.2) 10^3/ul Absolute Nucleated RBC 10^3/ul Nucleated RBC % APTT (26.0-36.3) seconds Sodium 131 L (133-145) mmol/L Potassium 5.1 H (3.5-5.0) mmol/L Chloride 100 L (101-111) mmol/L Carbon Dioxide 27 (22-32) mmol/L Anion Gap 4 (2-11) mmol/L BUN 14 (6-24) mg/dL Creatinine 0.99 (0.67-1.17) mg/dL Est GFR ( Amer) 99.5 (>60) Est GFR (Non-Af Amer) 77.4 (>60) BUN/Creatinine Ratio 14.1 (8-20) Glucose 220 H (70-100) mg/dL Lactic Acid 1.5 (0.5-2.0) mmol/L Calcium 8.7 (8.6-10.3) mg/dL Total Bilirubin 0.70 (0.2-1.0) mg/dL AST 25 (13-39) U/L ALT 49 (7-52) U/L Alkaline Phosphatase 61 (34-104) U/L Total Creatine Kinase 91 (10-223) U/L CK-MB (CK-2) 3.5 (0.6-6.3) ng/mL Troponin I 0.01 (<0.04) ng/mL B-Natriuretic Peptide ( - 100) pg/mL Total Protein 6.5 (6.4-8.9) g/dL Albumin 3.6 (3.2-5.2) g/dL Globulin 2.9 (2-4) g/dL Albumin/Globulin Ratio 1.2 (1-3) TSH 3.67 (0.34-5.60) mcIU/mL Assess/Plan/Problems-Billing Assessment: 61 yo M with h/o 5 stents due to severe CAD in 2015 now with NSTEMI - Patient Problems (1) NSTEMI (non-ST elevated myocardial infarction) Comment: Cardiac cath planned by cardiology. appreciate Dr. Galvan's consult Continue Aspirin and Plavix and heparin gtt Continue Metoprolol and add Atorvastatin. (2) Diabetes mellitus Comment: Oral meds on hold Continue Lispro SS. cont lower dose of Lantus (3) Hypertension Comment: Controlled. Continue Metoprolol. (4) Dyslipidemia Comment: LDL 44, cont Lipitor Status and Disposition: OBV will be changed to inpatient
[2017-07-14] MEDS: Aspirin EC Low Dose* 81 MG TAB.EC PO SCH (09:22)
[2017-07-14] MEDS: Metoprolol Succinate XL TAB* 50 MG PO SCH (09:22)
[2017-07-14] MEDS: Atorvastatin* 80 MG TAB PO SCH (09:22)
[2017-07-14] MEDS: Lisinopril TAB* 10 MG PO SCH (09:23)
[2017-07-14] MEDS: Insulin LISPRO* 1 UNITS UNIT SUBCUT SCH ×4 (09:23→21:07)
[2017-07-14] MEDS ORDERED: Heparin(*) 1000 UNIT/ML 10 ML VIAL CATH LAB IV ONE (10:48)
[2017-07-14] MEDS ORDERED: VERAPAMIL 2.5 MG/ML 4 ML VIAL ONE (10:48)
[2017-07-14] MEDS ORDERED: fentaNYL* 50 MCG/ML 2 ML VIAL (100 MCG VIAL) ONE (10:48)
[2017-07-14] MEDS ORDERED: Heparin 2 UNITS/ML IVPREMIX* 3,000 ML IV ONE (10:48)
[2017-07-14] MEDS ORDERED: nitroGLYCERIN DRIP* 25,000 MCG/250 ML BTL ONE (10:49)
[2017-07-14] MEDS ORDERED: Lidocaine 1% INJ* 10 MG/ML 30 ML SDV ONE (10:49)
[2017-07-14] MEDS ORDERED: Iohexol 350 (CONTRAST) 200 ML MDV IV ONE (10:49)
[2017-07-14] MEDS ORDERED: Midazolam* 1 MG/ML 10 ML VIAL (10 MG) ONE (11:10)
[2017-07-14] MEDS ORDERED: Ticagrelor* 90 MG TAB PO ONE (11:47)
[2017-07-14 12:17] LABS: Urine Appearance Clear; Urine Blood Negative (Negative); Urine Color Yellow; Urine Ketones Trace (Negative); Urine Protein Negative (Negative); Urine Specific Gravity 1.015 (1.010-1.030); Urine Urobilinogen Negative (Negative)
[2017-07-14] MEDS ORDERED: Nitroglycerin TAB 0.4 MG* 0.4 MG TAB SL PRN (12:32)
[2017-07-14] MEDS ORDERED: Clopidogrel TAB* 300 MG PO ONE (12:32)
[2017-07-14] MEDS ORDERED: NS 0.9% 1000 ML* 1,000 ML IV SCH (12:45)
[2017-07-14] MEDS: Insulin GLARGINE(*) 1 UNITS UNIT SUBCUT SCH (21:06)
--- NOTE | 2017-07-15 00:52 | CATH ---
CC: Dr. Vasquez; Dr. Woodward STENT REPORT: DATE OF PROCEDURE: 07/14/17 PRIMARY CARE PHYSICIAN: Dr. Vasquez. GAMMA FACILITIES OPERATOR: Dr. Woodward. PROCEDURES: Right radial artery access, bilateral selective coronary cineangiography, left heart cat heterization, left ventriculography, stent placement LAD 2.75 x 28 Xience Alpine IDALIA. HISTORY: A 61-year-old diabetic with prior multilesion multivessel stenting, now presenting with tro ponin positive ACS/non-ST elevation WI. PROCEDURE ACCESS: Right radial artery sheath 6-F slender. MEDICATIONS: 1. Subcu lidocaine. 2. IV Versed. 3. IV fentanyl. 4. IV heparin drip turned off in laboratory courier, radial cocktail: Heparin 3000 units. 5. Nitroglycerin 300 mcg. 6. Verapamil 3 mg IA. 7. Brilinta 180 mg p.o. loading dose. 8. Heparin 3000 units IV. DIAGNOSTIC CATHETER: 5F TIG4, 5F pigtail. GUIDING CATHETER: LAD 6F VL3.5 wire 14 BMW used to deploy a 2.75 x 28 Xience Alpine drug-eluting joleen nt in the mid LAD, overlapping the distal end of the prior distal LAD stent at 10 atmospheres 12 seco nds, then postdilated with overlapping inflations using a 2.75 x 12 NC balloon 18 atmospheres for 20, 18 for 20, 18 for 20. LV gram was then performed. HEMODYNAMICS: Initial BP 127/92, LV 100/7-14, no aortic valve gradient on pullback. ANGIOGRAPHY: Left main: The left main is normal. LAD: The LAD is moderate, has a proximal 40% stenosis before the prior stents, there is a proximal m oderate first diagonal, which has proximal tubular 30% stenosis. This is followed by a jailed second moderate diagonal, which has a proximal tubular 30% to 40% stenosis, unchanged from prior. The mid LAD beyond the prior stent has progressed to now 80% with an ulceration, distally the LAD extends pas t the apex. Circumflex: The circumflex is not dominant, has a small distribution with a bifurcated small postero lateral branch. There are left to right collaterals to an RV acute marginal branch, unchanged. RCA: The RCA is large, dominant, has previously placed stents in his proximal and mid portion as wel l as distally, they are all patent. The PDA is moderate and patent, is followed by a small posterola teral and then 2 larger posterolaterals. The RCA has no significant stenosis. LV gram: There is moderate inferior wall hypokinesis, estimated LVEF 45%. After LAD stent placement, postdilatation, there is a step up and step down, normal antegrade flow, n o dissection, LIBRADO-3 flow. CONCLUSION: 1. Single-vessel disease with culprit mid LAD progression with an ulcerated significant stenosis. T he mild diagonal stenosis are unchanged. The RCA stents are patent. 2. Mild LV systolic dysfunction with regional wall motion abnormality. 3. Excellent angiographic result with drug-eluting stent placement mid LAD. 4. Successful right radial artery access. [id number]/[facility] #: [id number]
[2017-07-15 06:14] LABS: ABS Basophils 0 10^3/ul (0-0.2); ABS Eosinophils 0.3 10^3/ul (0-0.6); ABS Lymphocytes 1.5 10^3/ul (1.0-4.8); ABS Monocytes 0.6 10^3/ul (0-0.8); ABS Neutrophils 4.5 10^3/ul (1.5-7.7); ABS Nucleated RBC 0 10^3/ul; Eosinophil % 3.6 % (0-6); Hematocrit 51 % (42-52); Hemoglobin 17.2 g/dl (14.0-18.0); Lymphocyte % 22.1 % (25-47); Mean Corpuscular HGB Conc 34 g/dl (31-36); Mean Corpuscular Hemoglobin 31 pg (27-31); Mean Corpuscular Volume 92 fL (80-94); Mean Platelet Volume 9 um3 (7.4-10.4); Nucleated Red Blood Cells % 0.1; Platelet Count 197 10^3/ul (150-450); Red Blood Count 5.55 10^6/ul (4.0-5.4); Red Cell Distribution Width 14 % (10.5-15)
[2017-07-15 06:25] LABS: EGFR Non-African American 101.9 (>60)
[2017-07-15] MEDS ORDERED: Clopidogrel TAB* 75 MG PO SCH (09:00)
[2017-07-15] MEDS: Insulin LISPRO* 1 UNITS UNIT SUBCUT SCH ×2 (09:25→13:12)
[2017-07-15] MEDS: Atorvastatin* 80 MG TAB PO SCH (09:25)
[2017-07-15] MEDS: Lisinopril TAB* 10 MG PO SCH (09:25)
[2017-07-15] MEDS: Aspirin EC Low Dose* 81 MG TAB.EC PO SCH (09:25)
[2017-07-15] MEDS: Metoprolol Succinate XL TAB* 50 MG PO SCH (09:25)
[2017-07-15 13:21] VITALS: BP 119/86
--- NOTE | 2017-07-15 16:06 | PN ---
Hospitalist Progress Note Date of Service: 07/15/17 . HOSPITALIST DISCHARGE NOTE: See dc instructions and summary by me. Patient stable for dc dc instructions reviewed with the patient at the bedside. DC patient home today.
--- NOTE | 2017-07-16 13:12 | DS ---
CC: Dr. Eren Vasquez; Dr. Antonio Woodward * DISCHARGE SUMMARY: DATE OF ADMISSION: 07/13/17 DATE OF DISCHARGE: 07/15/17 STATUS DURING HOSPITALIZATION: Inpatient. PRIMARY CARE PROVIDER: Dr. Eren Vasquez. OUTPATIENT INSIDE ACCOUNT EXECUTIVE: Dr. Antonio Woodward. ECHOMETER ENGINEER: Dr. Duke Ritter. HOSPITAL FIELD PROPERTY LOSS SPECIALIST: Dr. Buddy Galvan. PRINCIPAL DISCHARGE DIAGNOSIS: Type 1 [id number] myocardial infarction, status post cardiac catheterization with critical left anterior descending lesion, status post drug-eluting stent, with good post intervention flow observed distal to the occlusion. SECONDARY DIAGNOSES: 1. History of severe coronary artery disease, status post 5 stents in 2014, previously in left anterior descending and right coronary artery. 2. History of ST-elevation myocardial infarction in June 2016 without culprit lesion identified. Previously advised to take Effient and aspirin lifelong and medication noncompliance relating to bernstein/un-affordability. 3. Uncontrolled diabetes mellitus - type 2 - hemoglobin A1c measured during hospitalization at 9.4. 4. Hypercholesterolemia. DISCHARGE MEDICATION REGIMEN: New: Plavix 75 mg by mouth daily. Continue: 1. Aspirin 81 mg by mouth daily. 2. Nitroglycerin on a p.r.n. basis. 3. Metoprolol succinate 50 mg by mouth daily. 4. Glargine insulin 10 units daily. 5. Metformin 1000 mg by mouth twice daily. 6. Glipizide 5 mg by mouth twice daily. 7. Victoza 1.2 mg subcu daily. 8. Lipitor 80 mg by mouth daily. 9. Lisinopril 10 mg by mouth daily. 10. Stop Effient (substituting Plavix). HISTORY OF PRESENT ILLNESS AND HOSPITAL COURSE: Please see the H and P by Dr. Cielo López on 07/13/17 in addition to the cardiology consultation on the subsequent day by Dr. Buddy Galvan for this 53-year-old gentleman with history of myocardial infarction, coronary disease, status post PCI with multiple stents in various coronary distributions, as well as type 2 diabetes - uncontrolled, and prior tobacco abuse, who presented with chest pain with a low level of exertion. The patient had abnormal cardiac enzymes, which, when trended, swati above the threshold of qualifying for a [id number] myocardial infarction. The patient was seen by Cardiology in consultation and advised to undergo cardiac catheterization, which happened on 07/14/17. A LAD lesion was observed and was stented with a drug-eluting stent with good results. Please see Dr. Duke Terrell' catheterization report for more specific details. The patient is continuing on dual-antiplatelet therapy, high dose statins, NICOLÁS inhibitor therapy, considering he is both hypertensive and diabetic with coronary disease, and he will follow up with his primary field gauger and Dr. Terrell in the outpatient setting. In terms of his diabetic control, more aggressive dosing might be considered. The patient seems to be prime for more careful diabetic education, more frequent blood sugar checking and perhaps nutritional eduction. This could all be arranged and I suggest a [facility] ([facility]) referral for enhanced lifestyle modifications and further eduction. Mr. Francis is stable for discharge. He ambulated without pain. His catheterization entry site looked good and he is stable in all respects for discharge. He is going to follow up with Dr. Terrell as directed as well as Dr. Woodward in the outpatient setting. For more details regarding this hospitalization, please see the full medical record as this is a highly summarized account. TIME SPENT: Total time taken to discharge Mr. Francis was 45 minutes, greater than half that time was spent at the bedside doing bedside going over the discharge instructions, arranging his Plavix prescription, and answering general questions about coronary disease. [id number]/[facility] #: [id number] GEORGE
== END 2017-07-15 15:00 | disposition home or self-care (01) | DRG 174 ==
LOC: ED 14:34 → MEDTELE 17:23 → OBSVTOIN 07-14 09:01 → ICU 07-14 12:35
PROVIDERS: ADMIT Internal Medicine; ATTEND Internal Medicine
PROC: B2151ZZ Fluoroscopy of Left Heart using Low Osmolar Contrast (ICD-10-PCS; 2017-07-14)
PROC: 027034Z Dilation of Coronary Artery, One Artery with Drug-eluting Intraluminal Device, Percutaneous Approach (ICD-10-PCS; 2017-07-14)
PROC: 4A023N7 Measurement of Cardiac Sampling and Pressure, Left Heart, Percutaneous Approach (ICD-10-PCS; principal; 2017-07-14 10:00)
PROC: B2111ZZ Fluoroscopy of Multiple Coronary Arteries using Low Osmolar Contrast (ICD-10-PCS; 2017-07-14 10:00)
DX: I21.4 Non-ST elevation (NSTEMI) myocardial infarction (principal); E11.9 Type 2 diabetes mellitus without complications; H33.21 Serous retinal detachment, right eye; I25.119 Atherosclerotic heart disease of native coronary artery with unspecified angina pectoris; I10 Essential (primary) hypertension; E78.00 Pure hypercholesterolemia, unspecified; Z79.02 Long term (current) use of antithrombotics/antiplatelets; Z79.82 Long term (current) use of aspirin; Z79.4 Long term (current) use of insulin; Z83.3 Family history of diabetes mellitus; Z95.5 Presence of coronary angioplasty implant and graft; I25.2 Old myocardial infarction; Z87.891 Personal history of nicotine dependence; Z82.49 Family history of ischemic heart disease and other diseases of the circulatory system
CPT/HCPCS: 36415; 71045; 80048; 80053; 80061; 81003; 81015; 82550; 82553; 83036; 83605; 83880; 84443; 84484; 85025; 85730; 87077; 87086; 87186; 93005; 93458; 99156; 99157; 99283; A9270-GY; C1725; C1769; C1876; C1887; C9600-LD; J1644; J2250; J3010